=== PATIENT | female | born 1970 | race Caucasian/White ===

== ENCOUNTER 2023-11-25 18:56 | Emergency (ER) | payer MEDICAID, OTHER ==
[~2023-11-25] VITALS: Ht 165.1 cm; Wt 73.5 kg
[2023-11-25] MEDS ORDERED: OMEP20TA5 PO (19:07)
[2023-11-25] MEDS ORDERED: CITA10SO3 PO (19:07)
[2023-11-25] MEDS ORDERED: GABA-532 PO (19:07)
[2023-11-25] MEDS ORDERED: FAMO20TA8 PO (19:07)
[2023-11-25] MEDS ORDERED: METOCLOPRAMIDE HCL 10 MG/2 ML VIAL ONE (19:37)
[2023-11-25] MEDS ORDERED: MORPHINE SULFATE 4 MG/1 ML DISP.SYRIN ONE (19:37)
[2023-11-25] MEDS ORDERED: FAMOTIDINE. 20 MG/2 ML VIAL IV ONE (19:38)
[2023-11-25 19:40] LABS: BASOPHILS % (AUTO) 0.2 % (0.0-2.0); EOSINOPHILS % (AUTO) 11.5 % (0.0-7.0); HEMATOCRIT 41.2 % (31.2-41.9); HEMOGLOBIN 13.4 g/dL (10.9-14.3); LYMPHOCYTES # (AUTO) 2.1 K/uL (0.8-4.8); LYMPHOCYTES % (AUTO) 23.4 % (20.5-51.5); MEAN CORPUSCULAR HEMOGLOBIN 25.2 uug (24.7-32.8); MEAN CORPUSCULAR HGB CONC 33 g/dL (32.3-35.6); MEAN CORPUSCULAR VOLUME 77.5 fL (75.5-95.3); MONOCYTES # (AUTO) 0.4 K/uL (0.1-1.30); MONOCYTES % (AUTO) 4.8 % (0.0-11.0); NEUTROPHILS # (AUTO) 5.5 K/uL (1.8-8.9); NEUTROPHILS % (AUTO) 60.1 % (38.5-71.5); PLATELET COUNT (AUTO) 234 K/uL (179-408); RED BLOOD CELL COUNT(AUTO) 5.31 MIL/uL (3.63-4.92); RED CELL DISTRIBUTION WIDTH 14.9 % (12.3-17.7); WHITE BLOOD COUNT (AUTO) 9.1 K/uL (3.8-11.8)
[2023-11-25 19:43] LABS: DIFFERENTIAL COMMENT 1
[2023-11-25] MEDS: MORPHINE SULFATE 2 MG/1 ML DISP.SYRIN IV ONE (19:46)
[2023-11-25] MEDS: FAMOTIDINE. 20 MG/2 ML VIAL IV ONE (19:46)
[2023-11-25] MEDS: METOCLOPRAMIDE HCL 10 MG/2 ML VIAL IV ONE (19:46)
[2023-11-25 19:47] LABS: CALCIUM 8.8 mg/dL (8.5-10.1); CREATININE 0.8 mg/dL (0.6-1.3); POTASSIUM 3.7 mmol/L (3.5-5.1)
[2023-11-25 19:53] LABS: ALBUMIN 3.1 g/dL (3.4-5.0); TOTAL PROTEIN, SERUM 7.2 g/dL (6.4-8.2)
[2023-11-25] MEDS ORDERED: diphenhydrAMINE 50 MG/1 ML VIAL ONE (19:58)
[2023-11-25] MEDS ORDERED: LORAZEPAM 2 MG/1 ML VIAL ONE (19:59)
[2023-11-25] MEDS: LORAZEPAM 2 MG/1 ML VIAL IV ONE (20:03)
[2023-11-25] MEDS: diphenhydrAMINE 50 MG/1 ML VIAL IV ONE (20:03)
[2023-11-25 20:08] LABS: BILIRUBIN,DIRECT 0.1 mg/dL (0.0-0.2); BILIRUBIN,TOTAL 0.1 mg/dL (0.2-1.0)
[2023-11-25] MEDS: IV LACTATED RINGERS SOLUTION 1,000 ML IV ONE (20:11)
[2023-11-25] MEDS ORDERED: IV NORMAL SALINE 250 ML IV ONE (20:20)
[2023-11-25] MEDS ORDERED: IOHEXOL 300MG/ML 100 ML INFUS..BTL ONE (20:20)
[2023-11-25] MEDS ORDERED: SWABABLE VALVE TRANSFER SET EA MC ONE (20:20)
[2023-11-25] MEDS ORDERED: SIME80TA16 PO (22:25)
[2023-11-25] MEDS ORDERED: LANS30CA54 PO (22:25)
[2023-11-25 22:40] VITALS: BP 131/87; TEMP 98.3; O2SAT 95
== END 2023-11-25 22:41 | disposition home or self-care (01) ==
LOC: ER 19:01
DX: K27.9 Peptic ulcer, site unspecified, unspecified as acute or chronic, without hemorrhage or perforation (principal); R10.9 Unspecified abdominal pain; R10.2 Pelvic and perineal pain; Z79.899 Other long term (current) drug therapy
CPT/HCPCS: 80076; 80048; 83690; 85025; 84702; 36415; 93005; 74177; 99285; 96361; 96374; 96375; J1200; J3490; J2060; J2765; Q9967; J2270; J7120; A4606; A4663